=== PATIENT | male | born 1970 | race Hispanic/Latino ===

== ENCOUNTER → 2021-01-07 | Emergency (ER) | payer OTHER | END | disposition left against medical advice (07) | LOC: ER 08:43 | DX: R31.9 Hematuria, unspecified (principal) ==

== ENCOUNTER 2024-04-12 20:26 | Emergency (ER) | payer OTHER ==
[~2024-04-12] VITALS: Ht 172.7 cm; Wt 79.4 kg
[2024-04-12 21:00] VITALS: PULSE 110; RESP 20; TEMP 98.3
[2024-04-12] MEDS: KETOROLAC TROMETHAMINE 30 MG/ML VIAL IV STA (21:29)
[2024-04-12] MEDS: SODIUM CHLORIDE 0.9% 1000ML 1,000 ML IV SCH (21:29)
[2024-04-12] MEDS: ACETAMINOPHEN 325 MG TAB PO ONE (21:31)
[2024-04-12 21:42] LABS: BASOPHILS % 0.3 % (0.0-1.0); EOSINOPHILS % 0.6 % (0.0-6.0); HEMATOCRIT 42.5 % (38.2-49.6); HEMOGLOBIN 14.9 g/dL (14.0-18.0); LYMPHOCYTES # (AUTO) 1.7 (1.0-3.2); LYMPHOCYTES % 24.4 % (18.0-39.1); MEAN CORPUSCULAR HEMOGLOBIN 34.3 pg (28-32); MEAN CORPUSCULAR HGB CONC 35.1 g/dL (31-35); MEAN CORPUSCULAR VOLUME 97.9 fL (81-99); MONOCYTES % 13.7 % (4.4-11.3); NEUTROPHILS # (AUTO) 4.3 (2.1-6.9); NEUTROPHILS % 60.7 % (38.7-80.0); PLATELET COUNT 133 x10e3/uL (140-360); RED BLOOD COUNT 4.34 x10e6/uL (4.3-5.7); RED CELL DISTRIBUTION WIDTH 13.3 % (11.7-14.4); WHITE BLOOD COUNT 7.02 x10e3/uL (4.8-10.8)
[2024-04-12 21:43] LABS: ALBUMIN 3.9 g/dL (3.5-5.0); ALBUMIN/GLOBULIN RATIO 1.3 (0.8-2.0); ANION GAP 19.4 mmol/L (8-16); BILIRUBIN,TOTAL 0.8 mg/dL (0.2-1.2); CALCIUM 8.8 mg/dL (8.4-10.2); CREATININE, SERUM 0.78 mg/dL (0.72-1.25); TOTAL PROTEIN 6.9 g/dL (6.5-8.1)
[2024-04-12 21:46] LABS: POTASSIUM 3.4 mmol/L (3.5-5.1)
[2024-04-12 21:53] LABS: STREPTOCOCCUS GRP A ANTIGEN NEGATIVE (NEGATIVE)
[2024-04-12 22:01] LABS: INFLUENZA A AG NEGATIVE (NEGATIVE); INFLUENZA B AG NEGATIVE (NEGATIVE)
[2024-04-12 22:33] LABS: CORONAVIRUS COVID-19 AG NEGATIVE (NEGATIVE)
[2024-04-12] MEDS ORDERED: ULTRAM 50MG50 MG PO (22:45)
[2024-04-12] MEDS ORDERED: BACTRIM DS TAB1 EACH PO (22:45)
[2024-04-12] MEDS ORDERED: CEPHALEXIN500 MG PO (22:45)
[2024-04-12 23:06] VITALS: BP 148/95; O2SAT 97
== END 2024-04-12 23:05 | disposition home or self-care (01) ==
LOC: ER 20:36
DX: M79.641 Pain in right hand (principal); L03.113 Cellulitis of right upper limb; I10 Essential (primary) hypertension; Z11.52 Encounter for screening for COVID-19; Z87.442 Personal history of urinary calculi
CPT/HCPCS: 36415; 73090; 73130; 80053; 83518; 85025; 87070; 87428; 99284; J1885; J2543; J7030